=== PATIENT | male | born 1945 | race Caucasian/White ===

== ENCOUNTER 2016-11-28 14:00 | Outpatient (CLI) | payer MEDICARE, OTHER ==
[~2016-11-28] VITALS: Ht 177.8 cm; Wt 74.6 kg
[2016-11-28] MEDS ORDERED: LEVO1CAP11 PO (14:13)
[2016-11-28] MEDS ORDERED: ATOR40TA70 PO (14:13)
[2016-11-28] MEDS ORDERED: TELM1TAB28 PO (14:13)
[2016-11-28 14:17] VITALS: BP 116/77
== END 2016-11-28 14:47 | disposition home or self-care (01) ==
LOC: PREOP 14:00
PROVIDERS: ATTEND Podiatrist Foot Surgery
DX: Z01.818 Encounter for other preprocedural examination (principal); Z11.2 Encounter for screening for other bacterial diseases; M89.9 Disorder of bone, unspecified
CPT/HCPCS: 87081

== ENCOUNTER 2016-12-02 06:13 | Day surgery (SDC) | payer MEDICARE, OTHER ==
--- NOTE | 2016-11-29 09:23 | HISTORY AND PHYSICAL ---
To have outpatient surgery by Dr. Ocampo. CHIEF COMPLAINT: Right foot, to have surgery for hammertoe. ALLERGIC TO MEDICATIONS: Denies. MEDICATIONS NOW ON: 1. Lipitor 40. 2. Telmisartan/HCTZ 80/25. 3. Metanx. PREVIOUS SURGERIES: Kidney stone. FAMILY HISTORY: Denies asthma, TB, diabetes, heart disease, lung disease, cancer. REVIEW OF SYSTEMS: HEAD: Denies headache, dizziness, fainting. EYES, EARS, NOSE, THROAT: Denies diplopia, tinnitus, sore throat. RESPIRATORY: Denies asthma, TB, coughing, congestion, smoking or wheezing. HEART: No history of heart problems or chest pain. GASTROINTESTINAL: Appetite good. Denies blood in stools, diarrhea, constipation, ulcer, vomiting. GENITOURINARY: Denies blood, pain, frequency. PHYSICAL EXAMINATION: The patient is a white male, well-nourished, well-developed, in no acute respiratory distress at rest. Weight 164, blood pressure 110/80. Pulse 84. EARS: Not inflamed. EYES: No conjunctivitis or icterus. THROAT: Not inflamed. NECK: Thyroid not enlarged. No abnormal cervical lymphadenopathy noted. No carotid bruits. HEART: Regular rate and rhythm. LUNGS: Clear to auscultation. ABDOMEN: Soft. Liver and spleen nonpalpable. Good bowel sounds. EXTREMITIES: No pretibial edema. Good dorsalis pedis pulses. PLAN: The patient is okay for surgery. Job ID: [id number] Dictated Date: 11/28/2016 13:31:41 Client Care Consultant Date: 11/29/2016 09:19:18/carlos manuel
[~2016-12-02] VITALS: Ht 177.8 cm; Wt 74.6 kg
[~2016-12-02 06:13] MED LIST: ATOR40TA70 PO; LEVO1CAP11 PO; TELM1TAB28 PO
--- OUTSIDE RECORDS SUMMARY | 2016-12-02 06:20 | XMS REPORT | Continuity of Care Document ---
Author Author [facility] Organization [facility] Address Unknown Phone Unavailable Care Team Providers Care [employer] Name Role Phone DESTINEE FARIAS MD PCP Insurance Providers Payer Name Policy Number Subscriber Name Relationship [employer] [id number] Taylor Reynaga Self / Same As Patient Comm Crossover Enter Ins Name [id number] Taylor Reynaga Self / Same As Patient Advance Directives Directive Response Recorded Date/Time Advance Directives No 11/28/16 2:09pm Health Care Power of Transit Planning Manager No 11/28/16 2:09pm Resuscitation Status Full Code 11/28/16 2:09pm Problems No problem information available. Medications Current Home Medications Medication Dose Units Route Directions Days/Qty Instructions Start Date Telmisartan/Hydrochlorothiazid 1 Each 1 Each Oral Daily 11/28/16 Atorvastatin Calcium 40 Mg 40 Mg Oral Daily 11/28/16 Levomefolate/B6/B12/Algal Oil 1 Each 1 Each Oral Daily 11/28/16 Social History Social History Problem Response Recorded Date/Time Alcohol Use Denies Use 11/28/2016 2:09pm Recreational Drug Use No 11/28/2016 2:09pm Recent Foreign Travel No 11/28/2016 2:08pm Recent Infectious Disease Exposure No 11/28/2016 2:08pm Sexually Transmitted Disease Yes 11/28/2016 2:09pm HIV/AIDS No 11/28/2016 2:09pm Smoking Status Current Everyday Smoker 11/28/2016 2:09pm Recent Hopitalizations No 11/28/2016 2:09pm Sexually Transmitted Disease Yes 11/28/2016 2:09pm Query Response Start Date Stop Date Smoking Status Current Everyday Smoker Hospital Discharge Instructions No hospital discharge instructions. Plan of Care Discharge Date 11/28/16 2:47pm Prescriptions See Medication Section Functional Status No functional status results. Allergies, Adverse Reactions, Alerts No known allergies. Immunizations No immunization records. Vital Signs Acute Vital Signs Vital Response Date/Time Pulse Rate (adult) 107 bpm (60 - 90) 11/28/2016 2:17pm Respiratory Rate 16 bpm (12 - 24) 11/28/2016 2:17pm O2 Sat by Pulse Oximetry 96 % (88 - 100) 11/28/2016 2:17pm Blood Pressure 116/77 mm Hg 11/28/2016 2:17pm Blood Pressure Mean 90 mm Hg 11/28/2016 2:17pm Pain Numeric Pain Scale 2 11/28/2016 2:17pm Height (Feet) 5 feet 11/28/2016 2:07pm Height (Inches) 10.00 inches 11/28/2016 2:07pm Height (Calculated Centimeters) 177.152607 cm 11/28/2016 2:07pm Weight (Pounds) 164 pounds 11/28/2016 2:07pm Weight (Ounces) 8.0 oz 11/28/2016 2:07pm Weight (Calculated Grams) 36768.95 gm 11/28/2016 2:07pm Weight (Calculated Kilograms) 74.908148 kilograms 11/28/2016 2:07pm Calculated BMI 23.6 11/28/2016 2:07pm Results No known relevant diagnostic tests, laboratory data and/or discharge summary. Procedures No known history of procedures. Encounters Encounter Location Arrival/Admit Date Discharge/Depart Date Attending Provider Registered Clinic [facility] 11/28/16 2:00pm RICHIE ROD DPM
--- OUTSIDE RECORDS SUMMARY | 2016-12-02 06:21 | XMS REPORT | Continuity of Care Document ---
Author Author [facility] Organization [facility] Address Unknown Phone Unavailable Care Team Providers Care Data Processing Manager Name Role Phone DESTINEE FARIAS MD PCP Insurance Providers Payer Name Policy Number Subscriber Name Relationship [employer] [id number] Taylor Reynaga Self / Same As Patient Comm Crossover Enter Ins Name [id number] Taylor Reynaga Self / Same As Patient Advance Directives Directive Response Recorded Date/Time Advance Directives No 11/28/16 2:09pm Health Care Power of Contract Technical Writer No 11/28/16 2:09pm Resuscitation Status Full Code [...] 10.00 inches 11/28/2016 2:07pm Height (Calculated Centimeters) 177.289835 cm 11/28/2016 2:07pm Weight (Pounds) 164 pounds 11/28/2016 2:07pm Weight (Ounces) 8.0 oz 11/28/2016 2:07pm Weight (Calculated Grams) 02806.95 gm 11/28/2016 2:07pm Weight (Calculated Kilograms) 74.668648 kilograms 11/28/2016 2:07pm Calculated BMI 23.6 11/28/2016 2:07pm Results No known relevant diagnostic tests, laboratory data and/or discharge summary. Procedures No known history of procedures. Encounters Encounter Location Arrival/Admit Date Discharge/Depart Date Attending Provider Registered Clinic [facility] 11/28/16 2:00pm RICHIE ROD DPM
[2016-12-02 06:50] VITALS: BP 120/83
[2016-12-02] MEDS ORDERED: ceFAZolin 1,000 MG (ANCEF) VIAL ONE (06:50)
[2016-12-02] MEDS ORDERED: NS (IVPB) 50 ML ONE (06:51)
[2016-12-02] MEDS ORDERED: ROCURONIUM 50 MG/5 ML (ZEMURON) VIAL IV ONE (06:55)
[2016-12-02] MEDS ORDERED: ONDANSETRON 4 MG/2 ML (SDV) Z0FRAN ONE (06:55)
[2016-12-02] MEDS ORDERED: LIDOCAINE JELLY 2% (XYLOCAINE) 5 ML TUBE ONE (06:55)
[2016-12-02] MEDS ORDERED: proPOfol 200 MG/20 ML (DIPRIVAN) VIAL IV ONE (06:55)
[2016-12-02] MEDS ORDERED: LACTATED RINGERS 1,000 ML IV ONE ×2 (06:55→08:17)
[2016-12-02] MEDS ORDERED: LIDOCAINE PF 2% 10 ML (XYLOCAINE) AMP ONE (06:55)
[2016-12-02] MEDS ORDERED: MIDAZOLAM 2 MG/2 ML (VERSED) VIAL ONE (06:55)
[2016-12-02] MEDS ORDERED: fentaNYL INJECTION 100 MCG/2 ML AMP ONE (06:56)
[2016-12-02] MEDS: LACTATED RINGERS 1,000 ML IV PRN ×2 (07:00→08:17)
[2016-12-02] MEDS ORDERED: ceFAZolin 1 GM/NS 50 ML IVPB IV ONE ×2 (07:15)
[2016-12-02] MEDS ORDERED: BUPIVACAINE 0.5% 30 ML (SENSORCAINE) VIAL ONE (07:19)
[2016-12-02] MEDS ORDERED: MEPIVACAINE (CARBOCAINE) 2% 50 ML VIAL ONE (07:19)
[2016-12-02] MEDS ORDERED: DEXAMETHASONE PF 10 MG/ML (DECADRON) VIAL ONE (07:19)
[2016-12-02] MEDS ORDERED: LACTATED RINGERS 1,000 ML IV SCH (07:21)
--- NOTE | 2016-12-02 07:21 | Progress Note-Pre Operative ---
Pre-Operative Progress Note H&P Reviewed The H&P was reviewed, patient examined and no changes noted. Date H&P Reviewed: Dec 02, 2016 Time H&P Reviewed: 07:45 Pre-Operative Diagnosis: exostosis fourth and fifth digit right foot. RICHIE ROD DPM Dec 02, 2016 7:21 am
[2016-12-02] MEDS ORDERED: HYDROcodone/APAP 5 MG/325 MG (LORTAB) TAB PO PRN (07:30)
[2016-12-02] MEDS ORDERED: PHENYLEPHRINE 100 MCG/ML 10 ML (ANESTHESIA) SYR ONE ×2 (08:16)
[2016-12-02] MEDS ORDERED: SEVOFLURANE (ULTANE) 15 ML INHAL SOLN ONE ×3 (08:16→08:35)
--- NOTE | 2016-12-02 08:47 | Discharge Instructions ---
Discharge Instructions Discharge Medications New, Converted or Re-Newed RX: RX Given to Pt/Family Patient Instructions Patient Instructions 1. Follow up in office in 2 weeks. 2. Diet as tolerated. 3. Activity as tolerated. Activity & Diet Activity as Tolerated: Yes RICHIE ROD DPM Dec 02, 2016 8:47 am
--- NOTE | 2016-12-02 08:47 | Progress Note-Post Operative ---
Post-Operative Progess Note Pre-Operative Diagnosis exostosis fourth and fifth digit right foot. Post-Operative Diagnosis same Post-Op Procedure Note Date of Procedure: Dec 02, 2016 Name of Procedure: CAT 4th and fifth digit right foot. Procedure Note/Findings as usual Anesthesia Type general with [id number] RICHIE RODM Dec 02, 2016 8:46 am
[2016-12-02] MEDS ORDERED: morphine INJ 10 MG/ML 1ML (SYR OR VIAL) IVP PRN (09:00)
[2016-12-02] MEDS ORDERED: MEPERIDINE (DEMEROL) INJ 50 MG/ML IVP PRN (09:00)
[2016-12-02 09:20] VITALS: BP 113/75
[2016-12-02 09:50] VITALS: BP 116/71
[2016-12-02 10:20] VITALS: BP 119/77
[2016-12-02 10:25] VITALS: BP 119/77
--- NOTE | 2016-12-02 11:28 | Physical Therapy Progress Note ---
Therapy Progress Note Called to [facility] to check on status of patient. Nurse stated that patient had no need of PT. I believe patient has already left this facility. No evaluation performed. EUD ALEMAN PT Dec 02, 2016 11:28
--- NOTE | 2016-12-02 13:51 | Diagnostic Imaging Report ---
Two views of the right foot. INDICATION: Postoperative evaluation. FINDINGS: There is suggestion of an osteotomy along the lateral aspect of the head of the first metatarsal. No fracture or dislocation seen. There is radiopaque foreign body from dressing around the forefoot. IMPRESSION: Suggestion of an osteotomy along the head of the first metatarsal. Correlate with operative results. Dictated by: Dictated on workstation # [id number]
--- NOTE | 2016-12-04 08:18 | OPERATIVE REPORT ---
PROCEDURE PHYSICIAN: RICHIE ROD DATE OF PROCEDURE: 12/02/2016 PREOPERATIVE DIAGNOSIS: 1. Exostosis PIPJ lateral aspect 4th digit, right foot. 2. Exostosis medial aspect of the PIPJ 5th digit, right foot. POSTOPERATIVE DIAGNOSIS: 1. Exostosis PIPJ lateral aspect 4th digit, right foot. 2. Exostosis medial aspect of the PIPJ 5th digit, right foot. NAME OF OPERATION: Partial proximal phalangeal head resection PIPJ 4th digit, right with partial resection of the middle phalangeal base and exostectomy with partial resection of phalangeal base medial aspect of the PIPJ 5th digit right. DESCRIPTION OF OPERATION: With the patient in the supine position, having been effected by general anesthetic, sterile prep and drape were performed and a William bandage was applied at the level of the mid tarsus. A 2 cm incision was made over the dorsal lateral aspect of the 4th digit, deepened with sharp and blunt dissection. Dissection was carried deep to the PIPJ, this was incised in a linear fashion. The lateral collateral ligament was severed and the lateral aspect of the proximal phalangeal head and middle phalangeal base were exposed. There was an exostosis noted on the lateral aspect of the proximal phalangeal head and middle phalangeal base. This was resected in toto with remaining bone surface rasped smooth. The area was flushed with copious amounts of saline. Lateral collateral ligament was reapproximated with one simple interrupted suture of 4-0 Vicryl. The dorsal long tendon and capsule were reapproximated with one simple interrupted suture of 4-0 Vicryl. Skin and superficial fascia were closed with continuous lock suture of 4-0 Prolene. A 1 cm linear incision was made vertically at the distal aspect of the 5th digit, deepened with sharp and blunt dissection. The medial aspect of the PIPJ was exposed and a parish rasp was introduced into the operative site with the medial aspect of the DIP j resected in toto with remaining bone surface rasped smooth. This area was flushed with copious amounts of saline and the incision was closed with continuous suture of 4-0 Prolene. The 4th and 5th digits were blocked regionally with 8 cc 50-50 mixture of 0.5% Marcaine plain and 1% Carbocaine plain. Decadron was introduced into the operative site to control postoperative pain and swelling. Tourniquet was released. Blood flow return to the digits was within normal limits. Adaptic and sterile corrective compressive wet-to-dry dressing were applied and carried up to the level of the mid tarsus. The patient tolerated the procedure well with minimal blood loss. He left the OR to [facility] in apparent good condition. He is to be seen in the office in 2 weeks for appropriate follow-up care. He was given an Rx for Lortab 7.5 number 24, one q.4-6 hours p.r.n. foot pain prior to his hospital visit. Job ID: [id number] Dictated Date: 12/02/2016 08:52:18 Blade Groover Date: 12/04/2016 08:05:19 / peggy
== END 2016-12-02 10:39 | disposition home or self-care (01) ==
LOC: SDC 06:13
PROVIDERS: ATTEND Podiatrist Foot Surgery
DX: M89.9 Disorder of bone, unspecified (principal)
CPT/HCPCS: 73620